=== PATIENT | male | born 1990 | race Caucasian/White ===

== ENCOUNTER 2016-09-30 09:51 | Emergency (ER) | payer OTHER | END 2016-09-30 10:50 | disposition home or self-care (01) | LOC: FER 09:51 | DX: J02.9 Acute pharyngitis, unspecified (principal); R05 Cough; R00.0 Tachycardia, unspecified; F17.210 Nicotine dependence, cigarettes, uncomplicated | CPT/HCPCS: 87450; J0561 ==